=== PATIENT | female | born 1945 | race Caucasian/White ===

== ENCOUNTER 2016-03-20 10:49 | Outpatient (RCR) | payer MEDICARE, OTHER | END 2016-05-14 10:29 | disposition home or self-care (01) | LOC: PT 10:49 → LAB 10:49 → PT 05-14 10:29 | DX: M25.511 Pain in right shoulder (principal); G89.29 Other chronic pain ==

== ENCOUNTER → 2016-06-19 | Outpatient (CLI) | payer MEDICARE, OTHER | LOC: CARDREHAB 15:47 | DX: R55 Syncope and collapse (principal) ==

== ENCOUNTER → 2016-06-27 | Outpatient (CLI) | payer MEDICARE, OTHER | LOC: RAD 13:00 → VAS 16:24 | DX: R55 Syncope and collapse (principal) ==

== ENCOUNTER → 2017-01-22 | Outpatient (CLI) | payer MEDICARE, OTHER | LOC: RAD 09:52 | DX: Z12.31 Encounter for screening mammogram for malignant neoplasm of breast (principal) | CPT/HCPCS: G0202 ==

== ENCOUNTER → 2017-06-11 | Outpatient (CLI) | payer MEDICARE, OTHER | LOC: RAD 08:53 → MAMMO 09:15 → RAD 09:15 | DX: Z13.820 Encounter for screening for osteoporosis (principal); M81.0 Age-related osteoporosis without current pathological fracture ==

== ENCOUNTER → 2017-12-07 | Outpatient (CLI) | payer MEDICARE, OTHER | LOC: VAS 15:51 → RAD 16:00 | DX: I08.0 Rheumatic disorders of both mitral and aortic valves (principal) ==

== ENCOUNTER → 2018-02-17 | Outpatient (CLI) | payer MEDICARE, OTHER | LOC: MAMMO 11:30 | DX: Z12.31 Encounter for screening mammogram for malignant neoplasm of breast (principal) ==

== ENCOUNTER → 2019-02-03 | Outpatient (CLI) | payer MEDICARE, OTHER | LOC: VAS 15:19 → RAD 16:00 | DX: I77.810 Thoracic aortic ectasia (principal); I37.1 Nonrheumatic pulmonary valve insufficiency; I35.1 Nonrheumatic aortic (valve) insufficiency ==

== ENCOUNTER → 2019-02-22 | Outpatient (CLI) | payer MEDICARE, OTHER | LOC: MAMMO 11:06 | DX: Z12.31 Encounter for screening mammogram for malignant neoplasm of breast (principal) ==

== ENCOUNTER → 2019-08-09 | Outpatient (CLI) | payer MEDICARE, OTHER | LOC: MAMMO 13:00 → RAD 13:06 | DX: M85.80 Other specified disorders of bone density and structure, unspecified site (principal) ==

== ENCOUNTER → 2020-02-21 | Outpatient (CLI) | payer MEDICARE | LOC: VAS 16:27 → RAD 16:45 | DX: R93.1 Abnormal findings on diagnostic imaging of heart and coronary circulation (principal) ==

== ENCOUNTER → 2020-03-15 | Outpatient (CLI) | payer MEDICARE | LOC: MAMMO 09:55 | DX: Z12.31 Encounter for screening mammogram for malignant neoplasm of breast (principal) ==

== ENCOUNTER → 2021-03-27 | Outpatient (CLI) | payer MEDICARE | LOC: MAMMO 13:00 → RAD 13:01 → MAMMO 13:01 | DX: Z12.31 Encounter for screening mammogram for malignant neoplasm of breast (principal); I77.810 Thoracic aortic ectasia ==

== ENCOUNTER → 2021-09-05 | Outpatient (CLI) | payer MEDICARE | LOC: MAMMO 09:51 → RAD 09:51 → MAMMO 10:45 | DX: M85.89 Other specified disorders of bone density and structure, multiple sites (principal); M81.0 Age-related osteoporosis without current pathological fracture ==

== ENCOUNTER → 2022-04-01 | Outpatient (CLI) | payer MEDICARE | LOC: MAMMO 08:42 | DX: Z12.31 Encounter for screening mammogram for malignant neoplasm of breast (principal) ==

== ENCOUNTER → 2022-10-24 | Outpatient (CLI) | payer MEDICARE | LOC: RAD 09:39 | DX: J43.2 Centrilobular emphysema (principal); I35.1 Nonrheumatic aortic (valve) insufficiency | CPT/HCPCS: Q9967 ==

== ENCOUNTER → 2023-04-15 | Outpatient (CLI) | payer MEDICARE | LOC: MAMMO 08:04 | DX: Z12.31 Encounter for screening mammogram for malignant neoplasm of breast (principal) ==

== ENCOUNTER → 2023-04-15 | Outpatient (CLI) | payer MEDICARE | LOC: RAD 08:08 | DX: M19.012 Primary osteoarthritis, left shoulder (principal); M17.11 Unilateral primary osteoarthritis, right knee ==

== ENCOUNTER → 2023-04-28 | Outpatient (CLI) | payer MEDICARE | LOC: RAD 10:15 | DX: M17.11 Unilateral primary osteoarthritis, right knee (principal); M23.306 Other meniscus derangements, unspecified meniscus, right knee ==

== ENCOUNTER → 2023-07-20 | Outpatient (CLI) | payer MEDICARE | LOC: VAS 10:25 | DX: I08.3 Combined rheumatic disorders of mitral, aortic and tricuspid valves (principal) ==

== ENCOUNTER → 2024-04-14 | Outpatient (CLI) | payer MEDICARE | LOC: RAD 13:53 → MAMMO 14:00 | DX: Z13.820 Encounter for screening for osteoporosis (principal); M81.0 Age-related osteoporosis without current pathological fracture ==